=== PATIENT | female | born 1945 | race Hispanic/Latino ===

== ENCOUNTER 2020-01-29 10:50 | Outpatient (CLI) | payer MEDICARE ==
--- NOTE | 2020-01-29 11:21 | ULT ---
ULTRASOUND ABDOMEN LIMITED: (RIGHT UPPER QUADRANT) DATE: 01/29/2020 HISTORY: 74-year-old female with abdominal pain FINDINGS: Gallbladder: Normal wall thickness. No gallstones or sludge identified. No pericholecystic fluid. Liver: Normal parenchymal echogenicity. Right kidney: No hydronephrosis. Pancreas: Visualized, with no gross sonographic abnormality identified (although ultrasound is relati vely insensitive for the detection of pancreatic pathology compared to CT and MRI.). Common duct caliber: 3 mm. IMPRESSION: Normal.
== END 2020-01-29 10:51 | disposition home or self-care (01) ==
LOC: BICULT 10:50
PROVIDERS: ATTEND Family Medicine
DX: R10.9 Unspecified abdominal pain (principal)
CPT/HCPCS: 76705

== ENCOUNTER 2020-04-26 20:17 | Emergency (ER) | payer MEDICARE ==
[2020-04-26] MEDS ORDERED: Ketorolac Tromethamine 30 MG/ML VIAL ONE (22:21)
== END 2020-04-26 22:40 | disposition home or self-care (01) ==
LOC: ERS 20:17
DX: M54.5 Low back pain (principal)
CPT/HCPCS: 96372; 99283; J1885

== ENCOUNTER 2020-04-29 09:40 | Outpatient (CLI) | payer MEDICARE ==
--- NOTE | 2020-04-29 11:11 | MRI ---
MRI LUMBAR SPINE NONCONTRAST: DATE: 04/29/2020 HISTORY: 74-year-old female with low back pain and bilateral lumbar radiculopathy. "M 48.06 spinal stenosis" lumbar region. COMPARISON: None FINDINGS: Review of plain radiograph of 03/09/2020 demonstrates 6 nonrib-bearing lumbar-type vertebrae. Vertebra l body heights are maintained. Disc spaces are maintained. Alignment is normal. Bone marrow signal is normal. Conus medullaris terminates at L2. Cauda equina is arranged in a symmet rical, normal distribution throughout the thecal sac. Unremarkable perivertebral spaces. T12-L1:Only imaged on sagittal sequences. No central or neural foraminal stenosis. Minimal disc protr usion. L1-2:Essentially normal except for Schmorl's node at superior endplate of L2. L2-3:Normal L3-4:Bilateral and far lateral broad-based disc herniations are eccentric disc bulges encroach upon b ilateral neural foramina without causing significant neural foraminal stenosis. No central spinal canal stenosis. L4-5:Minimal disc bulge. Otherwise normal. L5-6:Superimposed on diffuse disc bulge, there is a central and bilateral paracentral shallow small t o moderate-sized disc herniation that indents the ventral aspect of thecal sac. Mild ligamentum flavum thickening. Mild to moderate bilateral facet DJD with facet joint effusions. Mild lateral rece ss stenosis bilaterally. Mild central spinal canal stenosis. L6-S1 bilateral L6 pars interarticularis defects without significant bone marrow edema. However, ther e is mild edema in the surrounding soft tissues. Minimal/mild right neural foraminal stenosis. No left neural foraminal stenosis. No central spinal canal stenosis. Bilateral facet joints are slightly hypoplastic. The intervertebral disc space is fully developed. IMPRESSION: 1) 6 lumbar type vertebrae. 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 3) overall mild lumbar spondylosis. 4) shallow central and bilateral paracentral disc herniation at L5-6 with mild lateral recess and mil d central spinal canal stenosis. 5) no high-grade central spinal canal stenosis, high-grade neural foraminal stenosis, or shaka nerve root impingement, at any level.
== END 2020-04-29 09:41 | disposition home or self-care (01) ==
LOC: BICMRI 09:40
PROVIDERS: ATTEND Family Medicine
DX: M48.061 Spinal stenosis, lumbar region without neurogenic claudication (principal); M47.816 Spondylosis without myelopathy or radiculopathy, lumbar region; M51.26 Other intervertebral disc displacement, lumbar region; M43.06 Spondylolysis, lumbar region
CPT/HCPCS: 72148

== ENCOUNTER 2020-05-20 10:16 | Outpatient (CLI) | payer MEDICARE ==
--- NOTE | 2020-05-20 12:44 | RAD ---
LUMBAR SPINE 4 VIEWS: Date: 05/20/2020 HISTORY: Low back pain. FINDINGS/IMPRESSION: No fracture, subluxation, or bony destruction is seen. No change in alignment is noted on flexion or extension. There is mild dextroscoliosis of the lumbar spine. POS: AH
== END 2020-05-20 10:17 | disposition home or self-care (01) ==
LOC: BICRAD 10:16
PROVIDERS: ATTEND Nurse Practitioner Family
DX: M47.816 Spondylosis without myelopathy or radiculopathy, lumbar region (principal); M41.9 Scoliosis, unspecified
CPT/HCPCS: 72110

== ENCOUNTER 2020-07-17 09:25 | Outpatient (CLI) | payer MEDICARE ==
--- NOTE | 2020-07-17 11:13 | MRI ---
MRI thoracic spine: 07/17/2020 COMPARISON: None HISTORY: Neck pain, radiculopathy TECHNIQUE: Multiplanar multisequence MR imaging of the thoracic spine obtained without contrast FINDINGS: The sagittal STIR imaging demonstrates no focal area of osseous marrow edema. Thoracic vert ebral body height and alignment appears normal. T1-2: No central canal or neural foraminal stenosis. T2-3: No central canal or neural foraminal stenosis T3-4: No central canal or neural foraminal stenosis T4-5: No central canal or neural foraminal stenosis T5-6: No central canal or neural foraminal stenosis T6-7: No central canal or neural foraminal stenosis T7-8: No central canal or neural foraminal stenosis T8-9: No central canal or neural foraminal stenosis T9-10: No central canal or neural foraminal stenosis. T10-11: No central canal or neural foraminal stenosis T11-12: Mild bilateral facet hypertrophy with no significant central canal or neural foraminal stenos is. Mild anterior osteophyte formation. T12-L1: Vacuum disc formation. Mild bilateral facet hypertrophy. No significant central canal or neur al foraminal stenosis. No focal area of abnormal signal intensity is identified within the thoracic cord. IMPRESSION: No significant central canal or neural foraminal stenosis within the thoracic spine.
--- NOTE | 2020-07-19 09:57 | MRI ---
MRI of thecervical spine: 07/17/2020 COMPARISON:None available HISTORY:Cervical radiculopathy, neck pain TECHNIQUE: Multiplanar multisequence MR imaging of thecervical spine without contrast Findings:The sagittal STIR imaging demonstrates no focal area of osseous marrow edema. No prevertebra l soft tissue swelling. Cervical vertebral body height and alignment is within normal limits. C2-3: Mild disc desiccation and minimal disc bulge with no significant central canal or neural forami nal stenosis. C3-4: There is facet and uncovertebral osteophyte formation on the left with mild/moderate left neura l foraminal stenosis. No significant central canal or right neural foraminal stenosis. C4-5: Bilateral facet and uncovertebral osteophyte formation, left greater than right. There is disc space narrowing with disc desiccation and mild disc bulge. Mild central canal stenosis. Mild right and moderate left neural foraminal stenosis. C5-6: There is disc space narrowing and disc desiccation with no central canal stenosis. Bilateral fa cet and uncovertebral osteophyte formation noted with moderate right and moderate/severe left neural foraminal stenosis. C6-7: There is disc space narrowing with disc desiccation. No central canal stenosis. Bilateral facet hypertrophy with mild right and moderate left neural foraminal stenosis. C7-T1: There is bilateral facet hypertrophy with mild bilateral neural foraminal stenosis. No central canal stenosis. No focal area of abnormal signal intensity is identified within the cervical cord. Incidental note is made of a T2 hyperintense focus within the posterior aspect of the palatine tonsil on the right measuring 6 mm. IMPRESSION: 1. Multilevel cervical spine degenerative change as described above. 2. Nonspecific T2 hyperintense focus within the posterior aspect of the pontine tonsil on the right. This may reflect a small cystic area on the basis of prior inflammatory change. Recommend CT examination of the neck with IV contrast for full assessment. CODE T
== END 2020-07-17 09:26 | disposition home or self-care (01) ==
LOC: BICMRI 09:25
PROVIDERS: ATTEND Specialist
DX: M47.22 Other spondylosis with radiculopathy, cervical region (principal); M54.14 Radiculopathy, thoracic region
CPT/HCPCS: 72141; 72146

== ENCOUNTER 2020-09-09 13:37 | Outpatient (CLI) | payer MEDICARE ==
[~2020-09-09 13:37] MED LIST: Iopamidol 370 76% 100 ML VIAL ONE
--- NOTE | 2020-09-09 14:41 | CT ---
EXAM: CT NECK SOFT TISSUE POST CONTRAST: HISTORY:Abnormal finding on recent cervical spine MRI. T2 hyperintense lesion along the posterior asp ect of the right palatine tonsil COMPARISON:None CORRELATION:Cervical spine MRI 07/17/2020 FINDINGS: Brain parenchyma: No pathologic enhancement of the visualized brain parenchyma. Sinuses: Adequate aeration of the visualized paranasal sinuses and mastoid air cells. Orbits: Appropriate location of the ocular lenses. Symmetric attenuation the optic nerves and ocular rectus muscles. Retrobulbar fat is preserved. Nasopharynx:Adequate aeration. No mucosal abnormality. Oral cavity:Aerodigestive tract is patent. No mucosal abnormality. Limited evaluation of the oral cav ity due to dental amalgam artifact. Midline fatty raphae of the tongue is preserved. Evaluation of the region of concern is also limited by extensive dental amalgam artifact. There does appear to be a calcification along the posterior aspect of the right palatine tonsil. There is a hypodensity on axial image 32, series 2 measuring 0.5 cm. This lesion is felt to correspond to the recent MRI findin g. Based on the size of the lesion, overall characterization is limited. Nevertheless, lesion does not appear to significantly enhance and may represent a nonspecific cystic lesion. The adjacent soft tissue structures are normal in appearance. Adjacent fat planes are maintained. Hypopharynx: No mucosal abnormality. Epiglottis has a normal caliber. Preepiglottic fat is preserved .. Larynx: No mucosal abnormality with regards to the supraglottic, glottic and subglottic larynx. Paraspinal muscles: Symmetric attenuation of the paraspinal muscles and symmetric attenuation of the sternocleidomastoid muscles.. Parotid and salivary glands: Symmetric attenuation of the parotid and submandibular glands Vessels: No significant stenosis. Technique limits evaluation. Thyroid gland: Unremarkable. Spine: Vertebral body height is maintained. No fracture. No significant central canal stenosis or sig nificant neural foraminal narrowing. Limited evaluation due to technique. Lymph nodes: No evidence of lymphadenopathy by size criteria Lung apices and upper mediastinum: No acute abnormality. IMPRESSION: 1. Hypodense focus adjacent to the right palatine tonsil is presumed to be a benign cystic lesion. Ad jacent calcification is noted. Transcribed Date/Time: 09/09/2020 3:03 PM
== END 2020-09-09 13:38 | disposition home or self-care (01) ==
LOC: BICCT 13:37
PROVIDERS: ATTEND Specialist
DX: J35.8 Other chronic diseases of tonsils and adenoids (principal); R93.89 Abnormal findings on diagnostic imaging of other specified body structures
CPT/HCPCS: 70491; 82565; Q9967

== ENCOUNTER 2021-04-02 09:45 | Outpatient (CLI) | payer MEDICARE ==
[2021-04-02] MEDS ORDERED: Magnevist 469MG/ML 20 ML VIAL ONE (11:09)
== END 2021-04-02 09:46 | disposition home or self-care (01) ==
LOC: BICMRI 09:45
PROVIDERS: ATTEND Family Medicine
DX: G81.90 Hemiplegia, unspecified affecting unspecified side (principal)
CPT/HCPCS: 70553; 82565; A9579